=== PATIENT | female | born 1985 | race Caucasian/White ===

== ENCOUNTER → 2018-04-14 13:44 | Outpatient (CLI) | payer OTHER, SELFPAY ==
[2018-04-18 13:06] LABS: HPV Reflexed? NOT INDICATED
== END ==
PROVIDERS: Visit Provider Obstetrics & Gynecology
DX: Z12.4 Encounter for screening for malignant neoplasm of cervix (principal)
CPT/HCPCS: 88175; G0145

== ENCOUNTER → 2019-03-19 08:48 | Outpatient (CLI) | payer OTHER, SELFPAY ==
--- NOTE | 2019-03-19 08:52 | CT_ITS ---
STUDY: CT MAXILLOFACIAL SINUSES REASON FOR EXAM: Female, 33 years old. SINUSITIS. RADIATION DOSAGE (If Supplied By Facility): CTDIvol = ( 33.06 ) mGy, DLP = ( 833.85 ) mGycm TECHNIQUE: The patient was scanned in a multi detector CT scanner. High resolution axial imaging was performed without the administration of intravenous contrast material. Sagittal and coronal images were reconstructed. Individualized dose optimization techniques were used for this CT. COMPARISON: None. FINDINGS: FRONTAL SINUSES: Normal aeration, without mucosal inflammatory disease. ETHMOIDAL SINUSES: Normal aeration, without mucosal inflammatory disease. MAXILLARY SINUSES: There is a 1 cm mucous retention cyst at the right maxillary sinus. Otherwise the maxillary sinuses are clear. SPHENOIDAL SINUSES: Normal aeration, without mucosal inflammatory disease. There is patency of the bilateral maxillary infundibuli with normal uncinate processes, ethmoid bullae, and hiatus semilunaris. There is a fela bullosa of the right middle turbinate. Normal bilateral inferior turbinates. There is a right sided nasal septal deviation, but without a nasal septal spur. There is patency of the bilateral nasal airways. The visualized osseous structures are normal. The visualized bilateral orbital contents are normal. CT/Sinus/Facial Bone IMPRESSION: Small right maxillary mucous retention cyst. Otherwise clear sinuses. Nasal septal deviation. Electronically Signed: Josef Motta MD at 8:08 EST Tel , Service support ,
== END ==
PROVIDERS: Family Provider Student in an Organized Health Care Education/Training Program; PCP Student in an Organized Health Care Education/Training Program; Referring Provider Otolaryngology Otolaryngology/Facial Plastic Surgery; Visit Provider Otolaryngology Otolaryngology/Facial Plastic Surgery
DX: J32.9 Chronic sinusitis, unspecified (principal)
CPT/HCPCS: 70486

== ENCOUNTER → 2019-04-19 15:20 | Outpatient (CLI) | payer OTHER, SELFPAY ==
--- NOTE | 2019-04-19 15:24 | VDLE_ITS ---
Reason For Study: Pain, Swelling RIGHT LEFT CFV is compressible, spontaneous, phasic, GSV is normal. competent and demonstrates normal SFJ is compressible. augmentation. Acute deep vein thrombosis is noted in the Procedure left gastroc vein. Exam performed in department. Acute deep vein thrombosis is noted in the A preliminary report was called and/or faxed left common femoral vein. to [facility]. Pt sent to ED. Acute deep vein thrombosis is noted in the left femoral vein. Acute deep vein thrombosis is noted in the left popliteal vein. Acute deep vein thrombosis is noted in the left peroneal vein. Acute deep vein thrombosis is noted in the left posterior tibial vein. Acute deep vein thrombosis is noted in the left soleus vein. Interpretation Summary Acute deep vein thrombosis is noted in the left common femoral vein. Acute deep vein thrombosis is noted in the left femoral vein. Acute deep vein thrombosis is noted in the left popliteal vein. Acute deep vein thrombosis is noted in the left tibio-peroneal trunk. Acute deep vein thrombosis is noted in the left peroneal vein. Acute deep vein thrombosis is noted in the left posterior tibial vein. Acute deep vein thrombosis is noted in the left soleus vein. Acute deep vein thrombosis is noted in the left gastrocnemius vein. The left great saphenous vein appears patent and compressible segmentally. Ordering Physician: Francisco Ceballos Referring Physician: Francisco Ceballos Performed By: Jazmin Romero RVT
== END ==
PROVIDERS: Family Provider Student in an Organized Health Care Education/Training Program; PCP Student in an Organized Health Care Education/Training Program; Referring Provider Student in an Organized Health Care Education/Training Program; Visit Provider Student in an Organized Health Care Education/Training Program
DX: I82.412 Acute embolism and thrombosis of left femoral vein (principal); I82.432 Acute embolism and thrombosis of left popliteal vein; I82.452 Acute embolism and thrombosis of left peroneal vein; I82.442 Acute embolism and thrombosis of left tibial vein; I82.462 Acute embolism and thrombosis of left calf muscular vein; I82.4Z2 Acute embolism and thrombosis of unspecified deep veins of left distal lower extremity
CPT/HCPCS: 93971

== ENCOUNTER 2019-04-19 15:48 | Emergency (ER) | payer OTHER, SELFPAY ==
[2019-04-19 15:49] VITALS: BP 161/94; PULSE 112; RESP 16; TEMP 36.7; O2SAT 100; BMI 32.5
--- NOTE | 2019-04-19 16:19 | ED.DCSUM_ITS ---
- ER Visit Summary Date of Service: 04/19/19 Chief Complaint: Left leg pain History of Present Illness: The patient is a 33 F who presents with left leg pain that has been getting progressively worse over the past 2 weeks. Patient had a venous duplex of her ultrasound done as an outpatient today which showed an acute DVT in the left common femoral vein, femoral vein, popliteal vein, gastroc vein, peroneal vein, posterior tibial vein, and soleus vein. Patient describes her pain as aching and cramping. Patient states her pain is worse with standing and walking. Patient does admit to some tingling in her toes that comes and goes. Patient denies any chest pain or shortness of breath. Patient denies any history of bleeding disorders. Physical Examination: Vital signs are stable except for mild tachycardia. Patient is afebrile. Patient is in no acute distress. Oral mucosa is pink and moist. Neck is supple. Trachea is midline. There is no JVD. Heart was regular rate and rhythm. Lungs are clear and equal bilaterally. Abdomen is soft and nontender. Cranial nerves II through XII are intact. There are no focal motor or sensory deficits noted. Extremities are intact. There is some tenderness and edema of the posterior aspect of the left thigh and left calf. There is full range of motion. Test Results: Outpatient venous duplex was reviewed and showed acute DVT from the common femoral vein distally. Emergency Department Course and Treatment: Case was discussed with Dr. Ceballos. Disposition: Discharge home Impression: DVT left lower extremity This note was generated with [employer] dictation software. It may contain incorrect words, spelling, and punctuation that were not noted in review of the chart prior to signing ED Disposition - Plan for ED Patient: Disposition: Home or Assisted Living Diagnosis: Deep vein thrombosis (DVT) of left lower extremity Instructions: Deep Vein Thrombosis Referrals: Francisco Ceballos DO [Primary Care Provider] - 5-7 Days
[2019-04-19] MEDS: Rivaroxaban 15 MG Tablet PO (17:22)
== END 2019-04-19 17:28 | disposition home or self-care (01) ==
LOC: ED 16:54
PROVIDERS: Emergency Provider Emergency Medicine; Family Provider Student in an Organized Health Care Education/Training Program; PCP Student in an Organized Health Care Education/Training Program
DX: I82.412 Acute embolism and thrombosis of left femoral vein (principal)
CPT/HCPCS: 99283